=== PATIENT | male | born 1995 | race Hispanic/Latino ===

== ENCOUNTER 2020-10-05 12:46 | Emergency (ER) | payer SELFPAY ==
[2020-10-05 14:05] LABS: #Basophils 0.1 thou/uL (0.0-0.2); #Eosinphils 0.1 thou/uL (0.0-0.7); #Lymphocytes 2.3 thou/uL (1.20-3.40); #Monocytes 0.6 thou/uL (0.11-0.59); #Neutrophils 5.1 thou/uL (1.40-6.50); %Basophils 0.9 % (0.0-1.0); %Eosinophils 0.9 % (0.0-10.0); %Lymphocytes 28.3 % (21.0-51.0); %Monocytes 7.8 % (0.0-10.0); %Neutrophils 62.1 % (42.0-75.0); Mean Corpuscular HGB CONC 32.5 g/dL (32.0-36.0); Mean Corpuscular Hemoglobin 27.1 pg (27.0-31.0); Mean Corpuscular Volume 83.4 fL (78.0-98.0); Mean Platelet Volume 7.7 fL (7.4-10.4); Platelet Count 347 thou/uL (130-400); RBC Distribution Width 11.9 % (11.5-14.5); Red Blood Cell (RBC) Count 5.52 mill/uL (4.70-6.10); White Blood Cell (WBC) Count 8.2 thou/uL (4.8-10.8)
[2020-10-05] MEDS ORDERED: Lisinopril 10 MG TAB ONE (14:16)
[2020-10-05 14:19] LABS: ALT (SGPT) 25 U/L (8-55); AST (SGOT) 21 U/L (5-34); Albumin 4.3 g/dL (3.5-5.0); Alkaline Phosphatase 96 U/L (40-110); Anion Gap 16 mmol/L (10-20); BUN (Urea Nitrogen) 14 mg/dL (8.9-20.6); Bilirubin, Total 0.5 mg/dL (0.2-1.2); Calc. Creatinine Clearance 0 mL/min (70-130); Calcium 9.2 mg/dL (7.8-10.44); Carbon Dioxide 27 mmol/L (22-29); Chloride 105 mmol/L (98-107); Globulin 3.5 g/dL (2.4-3.5); Glucose 115 mg/dL (70-105); Potassium 3.9 mmol/L (3.5-5.1); Protein, Total 7.8 g/dL (6.0-8.3); Sodium 144 mmol/L (136-145)
[2020-10-06 02:14] LABS: SARS-CoV-2 MS2 Positive; SARS-CoV-2 N Gene Positive; SARS-CoV-2 S Gene Positive; SARS-CoV-2 by NAA DETECTED (NotDetected); SARS-CoV-2 orf1ab Positive
== END 2020-10-05 15:10 | disposition home or self-care (01) ==
LOC: MADERS 12:46
DX: I10 Essential (primary) hypertension (principal); E66.9 Obesity, unspecified
CPT/HCPCS: 36415; 80053; 84484; 85025; 87635; 93005; U0003